=== PATIENT | male | born 1990 | race Two or more races ===

== ENCOUNTER 2018-05-03 15:19 | Emergency (ER) | payer SELFPAY ==
[~2018-05-03] VITALS: Ht 180.3 cm; Wt 69.4 kg
--- NOTE | 2018-05-03 15:19 | NUR ---
PT BIB [facility] AND [employer] OFFICERS, INGESTED " A GRAM OF METH"ON THE WAY TO ASSISTED, STS," I FEEL FINE"; PT AAOX4, RESPIRATIONS EVEN AND UNLABORED, NO SOB, NAD NOTED, PT ON MONITOR, VSS. PENDING ER PROVIDER WES
[2018-05-03 15:30] VITALS: BP 127/65
[2018-05-03] MEDS ORDERED: PEG 3350/NA SULF,BICARB,CL/KCL 4,000 ML BOTTLE PO ONE (15:30)
[2018-05-03] MEDS ORDERED: IV NS 0.9% 1,000 ML BAG IV ONE (15:30)
[2018-05-03] MEDS ORDERED: ACTIVATED CHARCOAL 25 GM/120 ML TUBE PO ONE (15:30)
--- NOTE | 2018-05-03 15:47 | NUR ---
ASKED TO GO OUT TO SMOKE,DEGRASSE LAY OUT CARPENTER IN CHARGE SAID IT'S FINE
--- NOTE | 2018-05-03 16:40 | NUR ---
PT NEVER CAME BACK FROM OUTSIDE. PT ELOPED FROM EMERGENCY ROOM; [employer]SMAN TECHNOLOGY COORDINATOR MADE AWARE
--- NOTE | 2018-05-03 16:42 | NUR ---
EKG CANCELLED BY BOSSMAN HORNER
== END 2018-05-03 16:44 | disposition left against medical advice (07) ==
LOC: ER 15:20
DX: F15.10 Other stimulant abuse, uncomplicated (principal); F17.200 Nicotine dependence, unspecified, uncomplicated; Z60.2 Problems related to living alone
CPT/HCPCS: 99283; A4606; Z7610

== ENCOUNTER 2018-11-20 07:31 | Emergency (ER) | payer SELFPAY ==
[~2018-11-20] VITALS: Ht 180.3 cm; Wt 68.0 kg
--- NOTE | 2018-11-20 07:32 | NUR ---
[email or web address], PER REPORT, POSSIBLE METH INGESTION AFTER COMPLAINT COORDINATOR KATIA. TO ER BED 11, HOOKED TO MONITOR, CHANGED TO GOWN, PROVIDED W WARM BLANKET, AWAITING MD HARVEY.
--- NOTE | 2018-11-20 07:49 | NUR ---
DR VALDES AT BEDSIDE
--- NOTE | 2018-11-20 10:06 | NUR ---
PATIRNT IN BED ASLEEP, EASILY AROUSED BY VOICE. HOOKED TO MONITOR, VSS, KEPT SAFE AND COMFORTABLE. WILL CONTINUE TO MONITOR ACCORDINGLY.
--- NOTE | 2018-11-20 12:28 | NUR ---
PATIENT IN BED ASLEEP, EASILY AROUSED BY VOICE. HOOKED TO MONITOR, VSS, KEPT SAFE AND COMFORTABLE. WILL CONTINUE TO MONITOR ACCORDINGLY.
[2018-11-20 14:26] VITALS: BP 108/52
--- NOTE | 2018-11-20 14:30 | NUR ---
Patient given written and verbal discharge instructions. Patient verbalizes understanding of instructions. Patient is ambulatory with steady gait. Refuses offer of correction placement. Patient given list of available shelters in surrounding area. Discharged in proper clothing, name band removed. All belongings returned.
== END 2018-11-20 14:40 | disposition home or self-care (01) ==
LOC: ER 07:33
DX: T43.621A Poisoning by amphetamines, accidental (unintentional), initial encounter (principal); Z60.2 Problems related to living alone; Y92.89 Other specified places as the place of occurrence of the external cause

== ENCOUNTER 2020-12-25 12:51 | Emergency (ER) | payer OTHER ==
[~2020-12-25] VITALS: Ht 180.3 cm; Wt 68.0 kg
[2020-12-25 13:19] VITALS: BP 126/72
--- NOTE | 2020-12-25 14:08 | NUR ---
covid swab collected and sent to lab.
--- NOTE | 2020-12-25 15:30 | NUR ---
Patient discharged to in custody in stable condition. Written and verbal after care instructions given. Patient verbalizes understanding of instruction.
== END 2020-12-25 15:31 | disposition home or self-care (01) ==
LOC: ER 12:54
DX: Z02.89 Encounter for other administrative examinations (principal); Z20.822 Contact with and (suspected) exposure to COVID-19; F17.200 Nicotine dependence, unspecified, uncomplicated
CPT/HCPCS: 87426; 99283; C9803

== ENCOUNTER 2020-12-26 08:15 | Emergency (ER) | payer OTHER ==
[~2020-12-26] VITALS: Ht 180.3 cm; Wt 70.3 kg
--- NOTE | 2020-12-26 08:22 | NUR ---
[email or web address], and [employer], per PT " i swallowed 2 bags of heroin yesterday" needs clearance for booking, in-custody. On room air, breathing evenly and unlabored. Kept comfortable, will continue to monitor accordingly.
[2020-12-26 08:29] VITALS: BP 118/77
--- NOTE | 2020-12-26 08:29 | NUR ---
Patient left via ambulatory accompanied by [employer] in no distress.
== END 2020-12-26 08:29 ==
LOC: ER 08:22
DX: T40.1X1A Poisoning by heroin, accidental (unintentional), initial encounter (principal); F17.200 Nicotine dependence, unspecified, uncomplicated; Z60.2 Problems related to living alone; Y92.89 Other specified places as the place of occurrence of the external cause

== ENCOUNTER 2021-06-03 12:20 | Emergency (ER) | payer OTHER ==
[~2021-06-03] VITALS: Ht 177.8 cm; Wt 72.6 kg
--- NOTE | 2021-06-03 12:30 | NUR ---
JAZMIN MORALES from Police [facility] Escorted by [employer] Officer Jouse [id number] "For OTB- He states swallowed a bag of fentanyl/meth yesterday am". The patient is alert and oriented x4. Denies pain. In room air and denies SOB. Respiration regular and unlabored. Attached to the monitor. Will continue to monitor the patient.
--- NOTE | 2021-06-03 12:33 | NUR ---
TREVERD UNIT#[id number] AT BEDSIDE
--- NOTE | 2021-06-03 13:04 | NUR ---
Chon mclaughlin in ED - 06/03/21 at 1304 by HECTOR Patient discharged to home in stable condition. Written and verbal after care instructions given. Patient verbalizes understanding of instruction.
--- NOTE | 2021-06-03 13:05 | NUR ---
Patient discharged in stable condition with [employer] officers. Written and verbal after care instructions given. Patient and the officers verbalize understanding of instruction.
[2021-06-03 13:07] VITALS: BP 116/75
== END 2021-06-03 13:07 ==
LOC: ER 12:27
DX: Z02.89 Encounter for other administrative examinations (principal); F15.10 Other stimulant abuse, uncomplicated; F17.200 Nicotine dependence, unspecified, uncomplicated; Z60.2 Problems related to living alone

== ENCOUNTER 2021-08-19 15:15 | Emergency (ER) | payer OTHER ==
[~2021-08-19] VITALS: Ht 180.3 cm; Wt 70.8 kg
[2021-08-19 15:25] VITALS: BP 119/77
--- NOTE | 2021-08-19 16:41 | NUR ---
Patient discharged in custody in stable condition. Written and verbal after care instructions given. Patient verbalizes understanding of instruction.
== END 2021-08-19 16:42 ==
LOC: ER 16:30
DX: T50.991A Poisoning by other drugs, medicaments and biological substances, accidental (unintentional), initial encounter (principal); Y92.89 Other specified places as the place of occurrence of the external cause